=== PATIENT | female | born 2000 | race Caucasian/White ===

== ENCOUNTER 2023-11-16 21:37 | Emergency (ER) | payer SELFPAY ==
[~2023-11-16] VITALS: Ht 165.1 cm; Wt 88.5 kg
[2023-11-16] MEDS ORDERED: AMOX/CLAVULANATE 875 MG TABLET ONE (22:49)
[2023-11-16] MEDS: AMOX/CLAVULANATE 875 MG TABLET PO ONE (22:55)
[2023-11-16] MEDS: BACITRACIN ZINC OINT PACKET 1 EA PACKET TP ONE (22:55)
[2023-11-16] MEDS ORDERED: AMOX-430 PO (23:51)
[2023-11-17 00:25] VITALS: BP 121/63; TEMP 98.1; O2SAT 98
== END 2023-11-17 00:26 | disposition home or self-care (01) ==
LOC: ER 21:43
DX: S60.413A Abrasion of left middle finger, initial encounter (principal); W54.0XXA Bitten by dog, initial encounter; Y93.89 Activity, other specified; Y92.89 Other specified places as the place of occurrence of the external cause; Y99.8 Other external cause status
CPT/HCPCS: 73130-TC